=== PATIENT | female | born 2000 | race Caucasian/White ===

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

== ENCOUNTER 2019-01-04 09:28 | Emergency (ER) | payer MEDICAID ==
[~2019-01-04] VITALS: Ht 162.6 cm; Wt 98.4 kg
[~2019-01-04 09:28] MED LIST: AMOXICILLIN/CLA1 TA6 PO; MOT600 PO; NORCO1 TA2 PO
[2019-01-04 09:42] VITALS: Ht 162.6 cm; Wt 98.4 kg
[2019-01-04 10:46] LABS: BASOPHIL % 0.6 % (0-2); PLATELET COUNT 291 x10^3mcL (130-400); RED CELL DISTRIBUTION WIDTH 14.5 % (11.5-14.5)
[2019-01-04 10:51] LABS: CALCIUM 9.1 mg/dL (8.5-10.1); CHLORIDE SERUM 104 mmol/L (98-107); CREATININE SERUM 0.8 mg/dL (0.6-1.0); GFR1 > 60 mL/min; GLUCOSE SERUM 82 mg/dL (74-106); SODIUM SERUM 138 mmol/L (136-145)
[2019-01-04 10:56] LABS: ALBUMIN 3.8 g/dL (3.4-5.0); ALKALINE PHOSPHATASE 48 U/L (46-116); ALT/SGPT 20 U/L (14-59); AST/SGOT 11 U/L (15-37); BILIRUBIN TOTAL 0.34 mg/dL (0.20-1.00); TOTAL PROTEIN, SERUM 7.7 g/dL (6.4-8.2)
[2019-01-04 12:09] VITALS: BP 118/87
== END 2019-01-04 12:56 | disposition home or self-care (01) ==
LOC: ED 09:28
PROVIDERS: Specialist
DX: N83.202 Unspecified ovarian cyst, left side (principal); Z90.49 Acquired absence of other specified parts of digestive tract
CPT/HCPCS: 36415; Q0092

== ENCOUNTER 2019-01-14 13:18 | Emergency (ER) | payer MEDICAID ==
[~2019-01-14] VITALS: Ht 162.6 cm; Wt 99.3 kg
[2019-01-14 13:31] VITALS: Ht 162.6 cm; Wt 99.3 kg
[2019-01-14 14:47] LABS: BASOPHIL % 0.5 % (0-2); PLATELET COUNT 285 x10^3mcL (130-400)
[2019-01-14 14:51] LABS: RED CELL DISTRIBUTION WIDTH 14.8 % (11.5-14.5)
[2019-01-14 17:36] VITALS: BP 138/65
== END 2019-01-14 17:36 | disposition home or self-care (01) ==
LOC: ED 13:18
PROVIDERS: Emergency Medicine
DX: R10.32 Left lower quadrant pain (principal); R50.9 Fever, unspecified; Z90.49 Acquired absence of other specified parts of digestive tract
CPT/HCPCS: 36415; J1885